=== PATIENT | female | born 1965 | race Asian ===

== ENCOUNTER 2021-03-26 11:44 | Day surgery (SDC) | payer OTHER, SELFPAY ==
[~2021-03-26] VITALS: Ht 152.4 cm; Wt 52.2 kg
[~2021-03-26 11:44] MED LIST: CEFAZOLIN SOD 1 GM in D5W 50 ML IV ONE
[2021-03-26] MEDS ORDERED: MIDAZOLAM HCL 5 MG/5 ML VIAL IVP ONE (13:20)
[2021-03-26] MEDS ORDERED: ONDANSETRON HCL 4 MG/2 ML VIAL IVP ONE (13:20)
[2021-03-26] MEDS ORDERED: ALFENTANIL HCL 1000 MCG/2 ML AMP IVP ONE (13:20)
[2021-03-26] MEDS ORDERED: LR 1,000 ML IV.SOLN IV ONE (13:20)
[2021-03-26] MEDS ORDERED: PROPOFOL 200MG/ 20ML VIAL (DIPRIVAN) IV ONE (13:20)
[2021-03-26] MEDS ORDERED: KETOROLAC TROMETHAMINE 30 MG VIAL IVP ONE (13:20)
[2021-03-26] MEDS ORDERED: DEXAMETHASONE SOD PHOSPHATE 4 MG/ML VIAL IVP ONE (13:20)
[2021-03-26] MEDS ORDERED: SEVOFLURANE 15 MIN GAS INH ONE (13:20)
[2021-03-26] MEDS ORDERED: LIDOCAINE 1% 10 MG/ML, 20 ML MDV INJ ONE (13:20)
[2021-03-26] MEDS ORDERED: MEPERIDINE HCL/PF 25 MG/ML DISP.SYRIN IVP PRN (14:00)
[2021-03-26] MEDS ORDERED: MIDAZOLAM HCL 2 MG/2 ML VIAL (VERSED) IVP PRN (14:00)
[2021-03-26] MEDS ORDERED: LR 1,000 ML IV SCH (14:00)
[2021-03-26] MEDS ORDERED: HYDROmorphone 1 MG/ML INJ. CARTRIDGE IVP PRN ×3 (14:00→16:00)
[2021-03-26] MEDS ORDERED: METOCLOPRAMIDE HCL 10 MG/2 ML VIAL IVP PRN (14:00)
[2021-03-26] MEDS ORDERED: ACETAMINOPHEN I.V. 1000 MG 100 ML IV ONE (14:07)
[2021-03-26] MEDS ORDERED: D5/0.45 NS 1,000 ML IV SCH (16:00)
[2021-03-26] MEDS ORDERED: HYDROcodone/ACETAMIN 5-325 MG TAB (NORCO/ VICODIN) PO PRN ×2 (16:00)
[2021-03-26 18:07] VITALS: BP_SYST 101
== END 2021-03-26 17:45 | disposition home or self-care (01) ==
LOC: SDS 11:44 → SMU 11:49 → SDS 17:45
PROVIDERS: ATTEND Colon & Rectal Surgery
DX: D04.5 Carcinoma in situ of skin of trunk (principal); F41.9 Anxiety disorder, unspecified; E78.00 Pure hypercholesterolemia, unspecified; F33.9 Major depressive disorder, recurrent, unspecified; Z79.899 Other long term (current) drug therapy; Z20.822 Contact with and (suspected) exposure to COVID-19
CPT/HCPCS: 11406; 15100; 88305; 88313; 88341; 88342; J0131; J0690; J1100; J1885; J2001; J2250; J2405; J2704; J3490; J7060; J7120; U0003